=== PATIENT | female | born 1990 | race African-American/Black ===

== ENCOUNTER 2020-05-24 13:16 | Inpatient (IN) | payer MEDICAID ==
[~2020-05-24] VITALS: Ht 160 cm; Wt 66.7 kg
[2020-05-24] MEDS ORDERED: LABETALOL HCL 5MG/ML VIAL 20ML IV PRN ×8 (14:00→20:15)
[2020-05-24] MEDS ORDERED: ACETAMINOPHEN 500MG TABLET PO SCH (14:00)
[2020-05-24] MEDS: LACTATED RINGERS 1,000 ML IV SCH ×2 (14:10→22:28)
[2020-05-24 14:49] LABS: BASOPHILS % 0.3 % (0.0-2.0); HEMATOCRIT. 34.3 % (36.0-48.0); HEMOGLOBIN. 11.8 g/dL (12.0-16.0); LYMPHOCYTES % 20.7 % (20.0-50.0); MEAN CORPUSCULAR HEMOGLOBIN 30.5 pg (28.0-32.0); MEAN CORPUSCULAR VOLUME 88.6 fL (81.0-99.0); MEAN PLATELET VOLUME 9.9 fl (7.4-10.4); MONOCYTES % 6.4 % (2.0-8.0); NEUTROPHILS % 72.6 % (40.0-76.0); PLATELET 193 x1000/uL (130-400); RED BLOOD CELL COUNT 3.87 mill/uL (4.2-5.4); RED CELL DISTRIBUTION WIDTH 13.4 % (11.6-14.6)
[2020-05-24 14:56] LABS: CHLORIDE 108 mEq/L (98-107)
[2020-05-24 15:00] LABS: D-DIMER 1.62 mg/L FEU (<0.50); INR 0.9; PARTIAL THROMBOPLASTIN TIME 28.5 sec (23.4-31.0); PROTHROMBIN TIME 9.6 sec (9.6-11.0)
[2020-05-24 15:23] LABS: HEPATITIS B SURFACE ANTIGEN NEGATIVE
[2020-05-24] MEDS: BETAMETHASONE ACET/BETAMET 30 MG/5 ML VIAL IM SCH (15:38)
[2020-05-24] MEDS: ONDANSETRON HCL 4MG/2ML INJ IV PRN ×2 (15:44→23:33)
[2020-05-24 15:53] LABS: CLARITY URINE CLEAR (CLEAR); COLOR URINE DARK YELLOW (YELLOW); KETONES URINE TRACE (NEGATIVE); LEUKOCYTE ESTERASE URINE TRACE (NEGATIVE); NITRITE URINE NEGATIVE (NEGATIVE); OCCULT BLOOD URINE NEGATIVE (NEGATIVE); PH URINE 6.5 (4.5-8.0); PROTEIN URINE 4+ (NEGATIVE); SPECIFIC GRAVITY URINE 1.031 (1.005-1.030)
[2020-05-24 16:14] LABS: OPIATES URINE SCREEN NEGATIVE (NEGATIVE)
[2020-05-24 16:15] LABS: *AMPHETAMINES SCREEN URINE NEGATIVE (NEGATIVE); *BARBITURATES SCREEN URINE NEGATIVE (NEGATIVE); *BENZODIAZEPINES SCREEN URINE NEGATIVE (NEGATIVE); CANNABINOID URINE SCREEN NEGATIVE (NEGATIVE); PHENCYCLIDINE URINE SCREEN NEGATIVE (NEGATIVE)
[2020-05-24 16:20] LABS: *COCAINE SCREEN URINE NEGATIVE (NEGATIVE)
[2020-05-24 16:23] LABS: METHADONE URINE SCREEN NEGATIVE (NEGATIVE)
[2020-05-24] MEDS ORDERED: MAGNESIUM 4 G PREMIX 100 ML IV ONE (20:15)
[2020-05-24] MEDS ORDERED: HYDRALAZINE 20MG/ML VIAL IV PRN (20:15)
[2020-05-24] MEDS: MAGNESIUM 20 G PREMIX (L & D) 500 ML IV SCH (21:32)
[2020-05-24] MEDS: BUTORPHANOL TARTRATE 2 MG/ML VIAL IV PRN (22:26)
[2020-05-25] VITALS (10 sets, daily range): BP systolic 139–171; BP diastolic 77–112
[2020-05-25] MEDS: BUTORPHANOL TARTRATE 2 MG/ML VIAL IV PRN ×2 (03:57→10:21)
[2020-05-25] MEDS ORDERED: FENTANYL CITRATE/PF 50MCG/ML 2ML VIAL ONE (05:21)
[2020-05-25] MEDS ORDERED: MIDAZOLAM HCL 2 MG/2 ML VIAL ONE (05:22)
[2020-05-25] MEDS ORDERED: EPHEDRINE SULFATE 50MG/ML VIAL ONE (05:22)
[2020-05-25] MEDS ORDERED: OXYTOCIN 10 UNITS/ML 1ML ONE (05:22)
[2020-05-25] MEDS ORDERED: PHENYLEPHRINE HCL 10 MG/ML 1ML (IV VIAL) IV ONE (05:22)
[2020-05-25] MEDS ORDERED: CEFAZOLIN SODIUM 1000MG/VIAL ONE (05:25)
[2020-05-25] MEDS ORDERED: ONDANSETRON HCL 4MG/2ML INJ ONE (05:26)
[2020-05-25] MEDS: BETAMETHASONE ACET/BETAMET 30 MG/5 ML VIAL IM SCH (05:43)
[2020-05-25 05:49] LABS: BASOPHILS % 0.1 % (0.0-2.0); HEMOGLOBIN. 12.1 g/dL (12.0-16.0); LYMPHOCYTES % 13.6 % (20.0-50.0); MEAN CORPUSCULAR HEMOGLOBIN 30.7 pg (28.0-32.0); MEAN CORPUSCULAR VOLUME 88.8 fL (81.0-99.0); NEUTROPHILS % 84.3 % (40.0-76.0); PLATELET 190 x1000/uL (130-400); RED BLOOD CELL COUNT 3.94 mill/uL (4.2-5.4); RED CELL DISTRIBUTION WIDTH 13.5 % (11.6-14.6)
[2020-05-25 06:04] LABS: INR 0.9; PARTIAL THROMBOPLASTIN TIME 24.3 sec (23.4-31.0); PROTHROMBIN TIME 9.3 sec (9.6-11.0)
[2020-05-25] MEDS ORDERED: CITRIC ACID/SODIUM CITRATE SOLN 30ML UDC PO NR (06:15)
[2020-05-25] MEDS ORDERED: MORPHINE SULFATE/PF 1MG/ML 10ML AMP ONE (06:37)
[2020-05-25] MEDS ORDERED: MAGNESIUM 20 G PREMIX (L & D) 500 ML IV SCH (07:15)
[2020-05-25] MEDS ORDERED: ONDANSETRON HCL 4MG/2ML INJ IV PRN (07:15)
[2020-05-25] MEDS ORDERED: LANOLIN OINT 7GM TUBE TOP PRN (07:15)
[2020-05-25] MEDS ORDERED: IBUPROFEN 400MG TABLET PO PRN (07:15)
[2020-05-25] MEDS ORDERED: BISACODYL 10MG SUPP PR PRN (07:15)
[2020-05-25] MEDS ORDERED: DIPHENHYDRAMINE 25MG CAPSULE PO PRN (07:15)
[2020-05-25] MEDS ORDERED: HEMORRHOIDAL SUPP PR PRN (07:15)
[2020-05-25] MEDS ORDERED: BUTORPHANOL TARTRATE 2 MG/ML VIAL IV PRN (07:30)
[2020-05-25] MEDS: MAGNESIUM 20 G PREMIX (L & D) 500 ML IV SCH (09:05)
[2020-05-25] MEDS: DEXT 5%/LR + PITOCIN 20UNITS/L 1,000 ML IV SCH ×2 (09:06→17:38)
[2020-05-25] MEDS: LABETALOL HCL 100MG TABLET PO SCH ×3 (10:04→22:09)
[2020-05-25] MEDS: MAGNESIUM/ALUMINUM HYDROXIDE/SIMETHICONE 30ML UDC PO SCH ×3 (12:30→21:00)
[2020-05-25] MEDS: SIMETHICONE 80MG TABLET CHEW PO SCH ×3 (13:00→21:00)
[2020-05-25] MEDS ORDERED: BETAMETHASONE ACET/BETAMET 30 MG/5 ML VIAL IM NR (15:00)
[2020-05-25] MEDS: DOCUSATE SODIUM 100MG CAPSULE PO SCH (21:00)
[2020-05-26] VITALS (12 sets, daily range): BP systolic 126–180; BP diastolic 11–111
[2020-05-26 03:38] LABS: HEMATOCRIT. 29.2 % (36.0-48.0); HEMOGLOBIN. 9.8 g/dL (12.0-16.0); MEAN CORPUSCULAR HEMOGLOBIN 30.3 pg (28.0-32.0); MEAN CORPUSCULAR VOLUME 90.2 fL (81.0-99.0); MEAN PLATELET VOLUME 8.6 fl (7.4-10.4); PLATELET 187 x1000/uL (130-400); RED BLOOD CELL COUNT 3.23 mill/uL (4.2-5.4); RED CELL DISTRIBUTION WIDTH 13.9 % (11.6-14.6)
[2020-05-26 05:12] LABS: PLATELET ESTIMATE NORMAL
[2020-05-26] MEDS ORDERED: LABETALOL HCL 100MG TABLET PO SCH (06:00)
[2020-05-26] MEDS ORDERED: LABETALOL HCL 200MG TABLET PO SCH ×2 (06:00→14:00)
[2020-05-26] MEDS: DIPHENHYDRAMINE 50MG/ML VIAL IV PRN ×2 (06:05→13:05)
[2020-05-26] MEDS: DEXT 5%/LR + PITOCIN 20UNITS/L 1,000 ML IV SCH (06:20)
[2020-05-26] MEDS: IBUPROFEN 800MG TABLET PO PRN ×3 (06:58→19:45)
[2020-05-26 08:59] LABS: BASOPHILS % 0.1 % (0.0-2.0); HEMATOCRIT. 31.3 % (36.0-48.0); HEMOGLOBIN. 10.5 g/dL (12.0-16.0); LYMPHOCYTES % 7.2 % (20.0-50.0); MEAN CORPUSCULAR HEMOGLOBIN 30.6 pg (28.0-32.0); MEAN CORPUSCULAR VOLUME 90.7 fL (81.0-99.0); MEAN PLATELET VOLUME 9.2 fl (7.4-10.4); MONOCYTES % 5.7 % (2.0-8.0); PLATELET 188 x1000/uL (130-400); RED BLOOD CELL COUNT 3.45 mill/uL (4.2-5.4); RED CELL DISTRIBUTION WIDTH 13.7 % (11.6-14.6)
[2020-05-26 09:41] LABS: CHLORIDE 102 mEq/L (98-107)
[2020-05-26] MEDS: FERROUS SULFATE 325MG TABLET PO SCH ×3 (09:43→17:26)
[2020-05-26] MEDS: PRENATAL VIT/FE FUMARATE/FA TABLET PO SCH (09:43)
[2020-05-26] MEDS: SIMETHICONE 80MG TABLET CHEW PO SCH ×4 (09:44→20:57)
[2020-05-26] MEDS: MAGNESIUM/ALUMINUM HYDROXIDE/SIMETHICONE 30ML UDC PO SCH ×4 (09:44→20:56)
[2020-05-26] MEDS: NIFEDIPINE XL 60MG TAB PO SCH (09:47)
[2020-05-26 10:08] LABS: D-DIMER 4.52 mg/L FEU (<0.50); INR 0.9; PARTIAL THROMBOPLASTIN TIME 25.6 sec (23.4-31.0); PROTHROMBIN TIME 9.1 sec (9.6-11.0)
[2020-05-26] MEDS: HYDROCODONE/ACETAMINOPHEN 5/325MG TABLET PO PRN (17:04)
[2020-05-26] MEDS: DOCUSATE SODIUM 100MG CAPSULE PO SCH (20:56)
[2020-05-26] MEDS: LABETALOL HCL 100MG TABLET PO SCH (22:30)
[2020-05-27] VITALS (7 sets, daily range): BP systolic 130–150; BP diastolic 79–98
[2020-05-27] MEDS: HYDROCODONE/ACETAMINOPHEN 5/325MG TABLET PO PRN ×3 (01:20→20:26)
[2020-05-27] MEDS: IBUPROFEN 800MG TABLET PO PRN ×2 (05:45→12:44)
[2020-05-27 06:59] LABS: HEMATOCRIT. 29.5 % (36.0-48.0); HEMOGLOBIN. 9.9 g/dL (12.0-16.0); MEAN CORPUSCULAR HEMOGLOBIN 30.6 pg (28.0-32.0); MEAN CORPUSCULAR VOLUME 91.5 fL (81.0-99.0); MEAN PLATELET VOLUME 9.2 fl (7.4-10.4); PLATELET 223 x1000/uL (130-400); RED BLOOD CELL COUNT 3.22 mill/uL (4.2-5.4); RED CELL DISTRIBUTION WIDTH 13.4 % (11.6-14.6)
[2020-05-27] MEDS: MAGNESIUM/ALUMINUM HYDROXIDE/SIMETHICONE 30ML UDC PO SCH ×3 (08:25→17:52)
[2020-05-27] MEDS: SIMETHICONE 80MG TABLET CHEW PO SCH ×3 (08:26→17:53)
[2020-05-27] MEDS: NIFEDIPINE XL 60MG TAB PO SCH (08:26)
[2020-05-27] MEDS: PRENATAL VIT/FE FUMARATE/FA TABLET PO SCH (08:27)
[2020-05-27] MEDS: FERROUS SULFATE 325MG TABLET PO SCH ×3 (08:27→17:53)
[2020-05-27] MEDS: LABETALOL HCL 100MG TABLET PO SCH (14:00)
[2020-05-27 14:36] LABS: NUCLEATED RED BLOOD CELLS 2 /100 WBC; PLATELET ESTIMATE NORMAL
[2020-05-27] MEDS: DOCUSATE SODIUM 100MG CAPSULE PO SCH (20:27)
[2020-05-28] VITALS (7 sets, daily range): BP systolic 130–164; BP diastolic 91–104
[2020-05-28] MEDS ORDERED: IBUP-2030 PO (01:21)
[2020-05-28] MEDS ORDERED: LABE100T5 PO (01:21)
[2020-05-28] MEDS ORDERED: FERR325T23 PO (01:21)
[2020-05-28] MEDS: LABETALOL HCL 100MG TABLET PO SCH ×3 (07:12→22:43)
[2020-05-28] MEDS: FERROUS SULFATE 325MG TABLET PO SCH ×3 (07:39→18:11)
[2020-05-28] MEDS: HYDROCODONE/ACETAMINOPHEN 5/325MG TABLET PO PRN ×2 (07:40→21:12)
[2020-05-28] MEDS: PRENATAL VIT/FE FUMARATE/FA TABLET PO SCH (09:04)
[2020-05-28] MEDS: NIFEDIPINE XL 60MG TAB PO SCH (09:05)
[2020-05-28] MEDS: SIMETHICONE 80MG TABLET CHEW PO SCH ×4 (09:06→21:12)
[2020-05-28] MEDS: DOCUSATE SODIUM 100MG CAPSULE PO SCH (21:12)
[2020-05-29 00:30] VITALS: BP 144/85
[2020-05-29 03:20] VITALS: BP 158/90
[2020-05-29] MEDS: IBUPROFEN 800MG TABLET PO PRN (03:29)
[2020-05-29] MEDS: LABETALOL HCL 100MG TABLET PO SCH (06:43)
[2020-05-29 07:30] VITALS: BP 133/100
[2020-05-29] MEDS: NIFEDIPINE XL 60MG TAB PO SCH (08:38)
[2020-05-29] MEDS: PRENATAL VIT/FE FUMARATE/FA TABLET PO SCH (08:38)
== END 2020-05-29 14:25 | disposition home or self-care (01) | DRG 540 ==
LOC: OBSVTOIN 13:16 → 8 EST LDRP 13:16 → 8EST 05-25 11:55
PROVIDERS: ADMIT Obstetrics & Gynecology; ATTEND Obstetrics & Gynecology
PROC: 10D00Z1 Extraction of Products of Conception, Low, Open Approach (ICD-10-PCS; principal; 2020-05-26)
PROC: 3E0P7VZ Introduction of Hormone into Female Reproductive, Via Natural or Artificial Opening (ICD-10-PCS; 2020-05-26)
DX: O13.4 Gestational [pregnancy-induced] hypertension without significant proteinuria, complicating childbirth (principal); O34.13 Maternal care for benign tumor of corpus uteri, third trimester; O60.14X0 Preterm labor third trimester with preterm delivery third trimester, not applicable or unspecified; D25.9 Leiomyoma of uterus, unspecified; D62 Acute posthemorrhagic anemia; D72.829 Elevated white blood cell count, unspecified; O99.12 Other diseases of the blood and blood-forming organs and certain disorders involving the immune mechanism complicating childbirth; O90.81 Anemia of the puerperium; O14.94 Unspecified pre-eclampsia, complicating childbirth; Z20.822 Contact with and (suspected) exposure to COVID-19; O36.5930 Maternal care for other known or suspected poor fetal growth, third trimester, not applicable or unspecified; Z3A.33 33 weeks gestation of pregnancy; Z37.0 Single live birth
CPT/HCPCS: 36415; 76805; 76818; 80053; 80305; 81003; 83735; 84156; 84550; 85025; 85379; 85384; 86592; 86644; 86762; 86850; 86900; 87340; 87426; 88307; 96372; 99281; J0595; J0690; J0702; J1200; J2250; J2274; J2370; J2405; J2590; J3010; J3475; J3490; J7120

== ENCOUNTER 2020-06-30 08:59 | Emergency (ER) | payer MEDICAID ==
[~2020-06-30] VITALS: Ht 160 cm; Wt 59.0 kg
[~2020-06-30 08:59] MED LIST: FERR325T23 PO; IBUP-2030 PO; LABE100T5 PO
[2020-06-30] MEDS ORDERED: KETOROLAC 30MG/ML VIAL IV STA (10:06)
[2020-06-30] MEDS ORDERED: SODIUM CHLORIDE 0.9% 1,000 ML IV ONE (10:15)
[2020-06-30 10:26] LABS: BASOPHILS % 0.4 % (0.0-2.0); EOSINOPHILS % 0.2 % (0.0-5.0); HEMATOCRIT. 34.1 % (36.0-48.0); HEMOGLOBIN. 11.5 g/dL (12.0-16.0); LYMPHOCYTES % 19.5 % (20.0-50.0); MEAN CORPUSCULAR HEMOGLOBIN 30.4 pg (28.0-32.0); MEAN CORPUSCULAR VOLUME 89.7 fL (81.0-99.0); MONOCYTES % 7.6 % (2.0-8.0); NEUTROPHILS % 72.3 % (40.0-76.0); PLATELET 377 x1000/uL (130-400); RED CELL DISTRIBUTION WIDTH 13.1 % (11.6-14.6)
[2020-06-30 10:34] LABS: CHLORIDE 107 mEq/L (98-107)
[2020-06-30 10:37] LABS: PROTHROMBIN TIME 10.6 sec (9.6-11.0)
[2020-06-30 10:41] LABS: HCG SCREEN NEGATIVE
[2020-06-30 10:48] LABS: CLARITY URINE CLOUDY (CLEAR); COLOR URINE DARK YELLOW (YELLOW); KETONES URINE 1+ (NEGATIVE); LEUKOCYTE ESTERASE URINE TRACE (NEGATIVE); NITRITE URINE NEGATIVE (NEGATIVE); OCCULT BLOOD URINE 3+ (NEGATIVE); PROTEIN URINE 4+ (NEGATIVE); SPECIFIC GRAVITY URINE 1.029 (1.005-1.030)
[2020-06-30] MEDS ORDERED: T3 PO (12:32)
[2020-06-30 13:00] VITALS: BP 144/94
== END 2020-06-30 13:26 | disposition home or self-care (01) ==
LOC: ER 09:19
DX: R10.9 Unspecified abdominal pain (principal); G89.18 Other acute postprocedural pain; R00.0 Tachycardia, unspecified; N93.9 Abnormal uterine and vaginal bleeding, unspecified; I10 Essential (primary) hypertension; Z98.890 Other specified postprocedural states; Z79.899 Other long term (current) drug therapy
CPT/HCPCS: 36415; 74176; 80053; 81003; 81025; 84703; 85025; 85610; 93005; 96374; 99285; J1885; J7030

== ENCOUNTER 2021-06-20 10:26 | Observation (INO) | payer MEDICAID ==
[~2021-06-20] VITALS: Ht 154.9 cm; Wt 69.4 kg
[~2021-06-20 10:26] MED LIST changes: +T3 PO
[2021-06-20 12:38] LABS: CLARITY URINE CLEAR (CLEAR); COLOR URINE YELLOW (YELLOW); KETONES URINE TRACE (NEGATIVE); LEUKOCYTE ESTERASE URINE NEGATIVE (NEGATIVE); NITRITE URINE NEGATIVE (NEGATIVE); OCCULT BLOOD URINE NEGATIVE (NEGATIVE); PROTEIN URINE NEGATIVE (NEGATIVE); SPECIFIC GRAVITY URINE 1.023 (1.005-1.030)
== END 2021-06-20 15:30 | disposition home or self-care (01) ==
LOC: 8 EST LDRP 10:26
PROVIDERS: ADMIT Obstetrics & Gynecology; ATTEND Obstetrics & Gynecology
DX: O26.892 Other specified pregnancy related conditions, second trimester (principal); R10.2 Pelvic and perineal pain; O99.891 Other specified diseases and conditions complicating pregnancy; M79.651 Pain in right thigh; Z3A.24 24 weeks gestation of pregnancy
CPT/HCPCS: 59025; 81003; G0378; 99281; G0379